=== PATIENT | male | born 1930 | race Caucasian/White ===

== ENCOUNTER 2016-07-30 14:13 | Inpatient (IN) | payer OTHER ==
[~2016-07-30] VITALS: Ht 172.7 cm; Wt 77.1 kg
--- NOTE | ~2016-07-30 | EKG ---
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 : 1930 Requested By: Camille Perkins Order Number: [id number] MD: Damon Higuera Measurements Intervals [place] Rate: 106 P: -48 DC: 162 QRS: -50 QRSD: 120 T: 96 QT: 365 QTc: 485 Interpretive Statements Sinus or ectopic atrial tachycardia Incomplete left bundle branch block LVH with secondary repolarization abnormality No previous ECG available for comparison Electronically Signed On 08-01-2016 10:52:33 CONE TENDER by Damon Higuera [email or web address] <ELECTRONICALLY SIGNED> By: Damon Higuera MD 08/01/16 1052 142 142 Damon Higuera MD /ABBI
--- NOTE | ~2016-07-30 | 2DMMODE ---
[facility] [place] [employer] [place] [address] 2 D/M-MODE ECHOCARDIOGRAM Name: ALFA BLEDSOE Room #: 444-P [facility] IN .R.#: [id number] Admission: 07/30/16 Attend Phys: Traci Yee, Discharge: Date of : 29 Date of Service: 07/30/16 1650 Report #: [id number] THIS REPORT FOR: //name// Transthoracic Echocardiography Ordering physician: Camille Perkins Referring physician: Janak Mendoza Kathleen L. Sign Designer: OLAF Ramirez Indications/History: Respiratory failure. BP: 159 / HR: 98bpm Height: 68in Weight: 169.6lb 90 Study data: M-mode, complete 2D, complete spectral Doppler, and color Doppler. Location: Bedside. STAT. Image quality was good. 2D measurements Normal Normal LVID ED 46mm 36-57 IVS ED 9.4mm 6-11 LVID ES 36.9mm 23-40 LVPW ED 9.6mm 6-11 LA volume 32ml/m2 16-28 AoRoot diam 32.4mm 21-37 index ED LVOT diameter 21mm 18-23 Findings: Left ventricle: The cavity size was normal. Wall thickness was normal. Systolic function was mildly to moderately reduced. The estimated ejection fraction was in the range of 40% to 45%. Regional wall motion abnormalities: Hypokinesis of the basal-mid anteroseptal, basal-mid inferoseptal, entire inferior, and apical septal myocardium. Right ventricle: The cavity size was normal. Systolic function was normal. Right atrium: The atrium was mildly dilated. Left atrium: The atrium was at the upper limits of normal in size. Volume index: 32ml/m2 (S). Aortic valve: Mildly calcified leaflets. Doppler: There was no stenosis. Mild regurgitation. Peak velocity: [facility] [address] [place] [address] 2 D/M-MODE ECHOCARDIOGRAM Name: ALFA BLEDSOE Room #: 444-P ADM IN M.R.#: [id number] Admission: 07/30/16 Attend Phys: Traci Yee, Discharge: Date of : 29 Date of Service: 07/30/16 1650 Report #: [id number] 86.3cm/s (S). Mitral valve: Mildly calcified annulus. Doppler: There was no evidence for stenosis. Mild regurgitation. Tricuspid valve: Structurally normal valve. Doppler: There was no evidence for stenosis. Mild-moderate regurgitation. Regurgitant peak velocity: 327.1cm/s. Peak RV-RA gradient: 43mm Hg (S). Pulmonic valve: Structurally normal valve. Doppler: There was no evidence for stenosis. Mild regurgitation. Pericardium: There was no pericardial effusion. Aorta: Aortic root: The aortic root was normal in size. Pulmonary artery: Systolic pressure was estimated to be 58mm Hg. Diastolic function: The study is not technically sufficient to allow evaluation of LV diastolic function. Systemic veins: Inferior vena cava: The vessel was dilated; respirophasic changes in dimension were absent. Conclusions 1. Left ventricle: Systolic function was mildly to moderately reduced. The estimated ejection fraction was in the range of 40% to 45%. 2. Regional wall motion abnormality: Hypokinesis of the basal-mid anteroseptal, basal-mid inferoseptal, entire inferior, and apical septal myocardium. 3. Right atrium: The atrium was mildly dilated. 4. Aortic valve: Mildly calcified leaflets. Mild regurgitation. 5. Mitral valve: Mildly calcified annulus. Mild regurgitation. 6. Pulmonic valve: Mild regurgitation. 7. Tricuspid valve: Mild-moderate regurgitation. 8. Pericardium, extracardiac: There was no pericardial effusion. 9. Pulmonary arteries: Systolic pressure was estimated to be 58mm Hg. <ELECTRONICALLY SIGNED> By: Carlton Gaviria MD, [facility] 07/30/162102 1650 02 Carlton Gaviria MD, FACC /naomi
--- NOTE | ~2016-07-30 | HC ---
[facility] [place] [place] [address] CONSULTATION Name: ALFA BLEDSOE Room #: 444-P ADM IN M.R.#: [id number] Admission: 07/30/16 Attend Phys: Traci Yee MD Discharge: Date of : 29 Report #: [id number] THIS REPORT FOR: //name// CC: Traci Mendoza PRIMARY CARE PHYSICIAN: Unknown. REFERRING PHYSICIAN: Traci Yee M.D. REASON FOR REFERRAL: Dyspnea and hypoxia. HISTORY OF PRESENT ILLNESS: The patient is an 85-year-old white male who presents to the Emergency Room with progressive dyspnea. A pulmonary consultation was requested. The patient has known hypogammaglobulinemia, he is on IV fusions. He has a history of multiple pneumonias in the past. The patient was also diagnosed with non-Hodgkin's lymphoma in 2006. The patient was in his usual state of health until 2 days prior to presentation he started developing increasing dyspnea, fever and chills. In the Emergency Room, the patient was found to be hypoxic with a saturation of 83%. Chest x-ray on admission revealed a small pleural effusion, otherwise mild interstitial markings without consolidation or air bronchogram. Since admission, the patient states that he is better. He denies any chest pain or productive cough. PAST MEDICAL HISTORY: Remarkable for non-Hodgkin's lymphoma in 2006, hypogammaglobulinemia, on IV immunoglobulin infusions, history of recurrent pneumonias in the past, osteoarthritis, benign prostatic hypertrophy and history of orthostatic hypotension. PAST SURGICAL HISTORY: As mentioned above. ALLERGIES: None to medications. MEDICATIONS ON ADMISSION: Revealed Remeron, diazepam, Celexa, Florinef and Flomax. FAMILY HISTORY: Notable for diabetes mellitus, rheumatic heart disease and Parkinson's disease. Mother had breast cancer. She has . [facility] [address] [place] [address] CONSULTATION Name: ALFA BLEDSOE Gilbert Room #: 444-P [facility] IN [facility]#: [id number] Admission: 07/30/16 Attend Phys: Traci Yee MD Discharge: Date of : 29 Report #: [id number] SOCIAL HISTORY: The patient has smoked for a total of 35 years, quit in 1978. He drinks socially. 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 He is and lives with his . REVIEW OF SYSTEMS: As mentioned above; otherwise, 10-point system review negative. PHYSICAL EXAMINATION: GENERAL: He is awake and alert, in no apparent distress. VITAL SIGNS: Temperature is 96.4 degrees Fahrenheit, pulse is 73, respiratory rate is 20, blood pressure 108/51 mmHg and saturation is 95%. HEENT: Normocephalic and atraumatic. NECK: Supple without any lymphadenopathy or thyromegaly. CHEST: Breath sounds are fair due to fair effort. Few scattered crackles in the bases. No wheezes. CARDIOVASCULAR: Normal S1 and S2. No murmurs or gallop. There is no JVD. There is no carotid bruit. Pulses are 2+/4+ bilaterally. ABDOMEN: Soft and nontender, no organomegaly or masses felt. EXTREMITIES: No cyanosis and no clubbing but marked for trace edema. LABORATORY DATA: Chest x-ray again shows small pleural effusion posteriorly, pulmonary vascular congestion has improved. Echocardiogram showed an ejection fraction of 40%-45%, hypokinesis, ____ wall motion abnormalities noted, mild aortic regurgitation, mild mitral regurgitation and pulmonary artery pressure measured 58. Electrolytes unremarkable except for creatinine of 1.2. Liver function tests grossly unremarkable. WBC 16,700, hemoglobin is 14.7. Arterial blood gas revealed pH 7.48, pCO2 of 29, pO2 of 91 and FiO2 of 30%. IMPRESSION: 1. Acute hypoxic respiratory failure in this 85-year-old white male. He had febrile illness on presentation. Chest x-ray shows pulmonary vascular congestion. Possible infiltrates. Leukocytosis is present without significant bandemia. Cause may be related to infectious process given febrile illness. Atypical pneumonia is also considered including viral given the absence of consolidation. Pneumonia is also possible. In addition, given his history of cardiomyopathy, acute on chronic systolic heart failure should also be considered. 2. Febrile illness, leukocytosis, abnormal chest x-ray, suspect possible infectious process including pneumonia and atypical infections including viral syndrome. 3. Pcfkm-as-foylkby systolic heart failure. 4. Nonischemic cardiomyopathy with ejection fraction of approximately 40%. 5. History of non-Hodgkin's lymphoma, status post treatment. 6. Hypogammaglobulinemia, on IV infusion. This makes pneumonia more likely. 7. History of orthostatic hypotension. [facility] [address] [place] [address] CONSULTATION Name: ALFA BLEDSOE Gilbert Room #: 444-P ADM IN M.R.#: [id number] Admission: 07/30/16 Attend Phys: Traci Yee MD Discharge: Date of : 29 Report #: [id number] RECOMMENDATIONS: Agree with broad-spectrum antibiotics. Also agree with diuresis along with DVT and GI prophylaxis. Wean O2 for saturation 90%. Thank you for this consultation. <ELECTRONICALLY SIGNED> By: Marcelo Valderrama MD 08/01/16 1628 1747 0447 Marcelo Valderrama MD /nt
--- NOTE | ~2016-07-30 | EKG ---
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
--- NOTE | ~2016-07-30 | EKG ---
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: agnes : 1930 Requested By: Traci Yee Order Number: [id number] MD: Damon Higuera Measurements Intervals [place] Rate: 70 P: 0 VA: 296 QRS: -40 QRSD: 117 T: -50 QT: 480 QTc: 519 Interpretive Statements Possible atrial fibrillation Left anterior fascicular block Borderline T abnormalities, inferior leads Baseline wander in lead(s) V5,V6 No previous ECG available for comparison Electronically Signed On 08-01-2016 11:02:13 GROCERY CLERK SELLING by Damon Higuera [email or web address] <ELECTRONICALLY SIGNED> By: Damon Higuera MD 08/01/16 1102 0231 0231 Damon Higuera MD /EPI
--- NOTE | ~2016-07-30 | HC ---
[facility] [place] [place] [address] CONSULTATION Name: ALFA BLEDSOE Room #: 444-P [facility] IN M.R.#: [id number] Admission: 07/30/16 Attend Phys: Traci Yee MD Discharge: 08/03/16 Date of : 29 Report #: [id number] THIS REPORT FOR: //name// CC: Traci Mendoza HISTORY OF PRESENT ILLNESS: The patient is an 85-year-old male known to myself, although I have not seen him for 3 or 4 years. He is admitted with progressive shortness of breath and dyspnea, respiratory distress, brought by EMS with O2 sats in the 80% range. Chest x-ray in the Emergency Room revealed some cephalization, heart failure, possible infiltrates. He is currently on BiPAP. He does have a history of recurrent pneumonia. He does not have much in the way of cardiac history. No significant heart failure history, has had some mild issues with this, but really has not been following with Cardiology. He takes no diuretic or really cardiovascular medications. He denies fever, chills. LABORATORY DATA: Elevated white count 16,000, BUN was 20, creatinine 1.2, potassium 3.7. Troponin is negative. BNP was 5402, so I am not terribly impressive in this setting. H and H were 14 and 44. Cultures are pending. MEDICATIONS: He has been compliant with medications which have been Remeron, diazepam b.i.d. for anxiety, Celexa at night 20 mg, Florinef, has a history of orthostatic hypotension and Flomax 0.4. PAST MEDICAL HISTORY: Positive for orthostatic hypotension, some anxiety disorder, non-Hodgkin's lymphoma, also some question of CLL in the old records, hypogammaglobinemia with IVIG infusions, BPH, skin cancer, DJD, cataract and recurrent pneumonias. SOCIAL HISTORY: He is . He lives relatively independently. He does have I believe 3 sons. He is a former tobacco user, but none currently and no alcohol. FAMILY HISTORY: His father at 47 possibly from premature coronary artery disease. REVIEW OF SYSTEMS: Essentially negative except for as stated above and the nocturia, hesitancy. PHYSICAL EXAMINATION: VITAL SIGNS: Blood pressure 150/90, pulse is 80s. He has a BiPAP. GENERAL: He is not in significant distress. HEENT: Eyes reveal xanthelasmas. Pharynx is clear. NECK: Shows preserved upstrokes, difficult to evaluate for JVD. LUNGS: Prolonged expiratory phase, diminished in the bases, few crackles are noted. CARDIOVASCULAR: S1, S2. Distant heart tones without significant murmur or [facility] [address] [place] [address] CONSULTATION Name: ALFA BLEDSOE Gilbert Room #: 444-P DIS IN M.R.#: [id number] Admission: 07/30/16 Attend Phys: Traci Yee MD Discharge: 08/03/16 Date of : 29 Report #: [id number] gallop. ABDOMEN: Soft, slightly protuberant, nontender. EXTREMITIES: Reveal trace of edema. His pulse is diminished. NEUROLOGIC: Nonfocal. SKIN: Warm and dry and without xanthoma or ulcer. There is lower extremity venous stasis, mild skin changes. MUSCULOSKELETAL: Generalized arthritic changes. I did not ambulate him. ASSESSMENT: 1. Acute respiratory distress with hypoxemia. 2. Probable component of acute systolic failure, although I believe this may well be more of an infectious pneumonia process. 3. History of orthostatic hypotension. 4. Hypertension here currently, will follow. 5. Anxiety disorder. 6. Degenerative joint disease. 7. History of benign prostatic hypertrophy. RECOMMENDATIONS AND PLAN: IV antibiotics and steroids have been given. I have given a dose of IV Lasix. We will reevaluate the chest x-ray in the a.m. The EKG is not impressive. Looks like left axis, LVH is noted. An echo Doppler preliminarily had mild depression, LV function and had been previously 55-60, looks to be more in the 45% range. I will go and reevaluate for formal report. We will reevaluate in the a.m. The need for continued IV Lasix, I suspect there is definitely a component of heart failure here of either diastolic or systolic mixed picture on top of underlying pulmonary process. I agree with prophylactic Lovenox and Protonix and we will follow with you. Thank you for asking us to assist in the care of this patient. <ELECTRONICALLY SIGNED> By: Carlton Gaviria MD, FACC 08/13/16 0936 2043 0501 Carlton Gaviria MD, FACC /nt
[~2016-07-30 14:13] MED LIST: ANTIVERT12.5 MG PO; CARDURA8 MG PO; CELEXA 20 MG TA20 M1 PO; CELEXA20 MG PO; CLARITIN10 MG PO; FLOMAX PO; FLOMAX0.4 MG PO; FLORINEF ACETA0.1 MG PO; HM ACETAMINOPH1 EAC1 PO; KLOR-CON20 ME1 PO; LEVAQUIN 500 M500 M1 PO; LEXAPRO20 MG PO; LORATIDINE 10 M10 M1 PO; MIDODRINE HCL2.5 M1 PO; MULTIVITAMINS PO; PRIVIGEN IV; RAPAFLO PO; RAPAFLO4 MG PO; TAMSULOSIN HCL0.4 MG PO; TYLENOL P.M. E1 EAC3 OR; [UNRECOGNIZED DRUG - OTHER]
[2016-07-30 14:14] VITALS: BP 201/108; BP 98/75
[2016-07-30] MEDS ORDERED: DIAZEPAM 2MG TAB2 MG PO (14:27)
[2016-07-30] MEDS ORDERED: REMERON15 MG PO (14:27)
[2016-07-30 14:37] LABS: HEMATOCRIT 44.6 % (42.0-52.0); HEMOGLOBIN 14.7 gm/dL (14.0-18.0); MCH 29.4 pg (26.0-34.0); PLATELET COUNT 282 thou/uL (150-400); RBC 5.01 mil/uL (4.50-6.00); RDW 14.6 % (10.5-14.5); WBC 16.7 thou/uL (4.0-11.0)
[2016-07-30 14:39] LABS: MANUAL DIFF YES
[2016-07-30 14:47] LABS: CALCIUM 8.7 mg/dL (8.5-10.1); CREATININE 1.2 mg/dL (0.6-1.3); POTASSIUM 3.7 mmol/L (3.5-5.1)
[2016-07-30] MEDS ORDERED: NEURONTIN600 MG PO ×2 (14:47→15:40)
[2016-07-30] MEDS ORDERED: APAP500 PO (14:47)
[2016-07-30 14:59] LABS: ABSOLUTE NEUTROPHILS 9.9 thou/uL (1.4-8.2); ATYPICAL LYMPHS 11 %; PLATELET ESTIMATE NORMAL; TOTAL CELL COUNT 100
[2016-07-30 15:11] LABS: ABG SAMPLE TYPE ARTERIAL; BE(vivo) -4.8 mmol/L (-2 to +3); HCO3 17.7 mmol/L (22.0-26.0); LACTATE 1.97 mmol/L (0.5-2.0); O2(CT) 19.8 mL/dL (15.0-23.0); O2Hb 97.9 % (92.0-98.0); PCO2 26.6 mmHg (35.0-45.0); PO2 159.2 mmHg (80.0-100.0); sO2 99.1 % (92.0-98.0); tCO2 18.5 mmol/L (24.0-30.0)
[2016-07-30 15:12] LABS: STICK SITE R.RADIAL
[2016-07-30] MEDS ORDERED: CELEXA20 MG PO (15:41)
[2016-07-30] MEDS ORDERED: FLORINEF ACETA0.1 MG PO (15:42)
[2016-07-30 15:43] VITALS: BP 162/69
[2016-07-30 19:48] VITALS: BP 142/80
[2016-07-30 23:38] VITALS: BP 106/78
[2016-07-31 02:39] LABS: ABSOLUTE NEUTROPHILS 10.6 thou/uL (1.4-8.2); BASOPHILS 0.4 % (0.0-2.0); EOSINOPHILS 0.8 % (0.0-3.0); HEMOGLOBIN 13.1 gm/dL (14.0-18.0); MCH 29.5 pg (26.0-34.0); MCHC 33.6 % (28.0-37.0); MCV 87.7 fL (80.0-100.0); MONOCYTES 1.9 % (1.0-8.0); PLATELET COUNT 212 thou/uL (150-400); POLYS 67.9 % (36.0-66.0); RBC 4.45 mil/uL (4.50-6.00); WBC 15.6 thou/uL (4.0-11.0)
[2016-07-31 02:41] LABS: MANUAL DIFF NO
[2016-07-31 03:27] VITALS: BP 136/73
[2016-07-31 04:27] LABS: ALBUMIN 3.4 g/dL (3.4-5.0); CALCIUM 8.1 mg/dL (8.5-10.1); CREATININE 1.1 mg/dL (0.6-1.3); POTASSIUM 3.4 mmol/L (3.5-5.1); TOTAL BILIRUBIN 1.2 mg/dL (<0.1-1.0)
[2016-07-31 07:33] LABS: ABG SAMPLE TYPE ARTERIAL; BE(vivo) -0.2 mmol/L (-2 to +3); FIO2 30 %; HCO3 22.1 mmol/L (22.0-26.0); LACTATE 1.98 mmol/L (0.5-2.0); O2(CT) 18.7 mL/dL (15.0-23.0); O2Hb 96.2 % (92.0-98.0); PCO2 29.7 mmHg (35.0-45.0); PO2 91.3 mmHg (80.0-100.0); STICK SITE R.BRACHIAL; pH 7.489 (7.360-7.450); sO2 97.6 % (92.0-98.0)
[2016-07-31 07:34] LABS: Pressure Support 6 cm H20
[2016-07-31 08:00] VITALS: BP 131/76
[2016-07-31 12:00] VITALS: BP 114/71
[2016-07-31 16:00] VITALS: BP 108/51
[2016-07-31 20:38] VITALS: BP 102/54
[2016-08-01 04:08] VITALS: BP 124/64
[2016-08-01 05:47] LABS: ABSOLUTE NEUTROPHILS 12.1 thou/uL (1.4-8.2); BASOPHILS 0.7 % (0.0-2.0); HEMATOCRIT 36.1 % (42.0-52.0); HEMOGLOBIN 11.8 gm/dL (14.0-18.0); LYMPHOCYTES 18.5 % (24.0-44.0); MANUAL DIFF NO; MCHC 32.8 % (28.0-37.0); MCV 88.5 fL (80.0-100.0); MONOCYTES 3.3 % (1.0-8.0); PLATELET COUNT 217 thou/uL (150-400); POLYS 77.5 % (36.0-66.0); RBC 4.08 mil/uL (4.50-6.00); RDW 14.5 % (10.5-14.5); WBC 15.7 thou/uL (4.0-11.0)
[2016-08-01 05:58] LABS: CALCIUM 8.2 mg/dL (8.5-10.1); CREATININE 1.4 mg/dL (0.6-1.3); POTASSIUM 3.5 mmol/L (3.5-5.1)
[2016-08-01 08:37] VITALS: BP 131/70
[2016-08-01 12:26] VITALS: BP 125/84
[2016-08-01 15:13] VITALS: BP 125/84
[2016-08-01 16:23] VITALS: BP 137/70
[2016-08-01 19:11] VITALS: BP 147/83
[2016-08-02 03:39] VITALS: BP 140/87
[2016-08-02 04:23] LABS: ABSOLUTE NEUTROPHILS 10.5 thou/uL (1.4-8.2); BASOPHILS 0.2 % (0.0-2.0); HEMATOCRIT 38.2 % (42.0-52.0); HEMOGLOBIN 12.2 gm/dL (14.0-18.0); LYMPHOCYTES 25.2 % (24.0-44.0); MCH 28.9 pg (26.0-34.0); MCHC 32.1 % (28.0-37.0); MCV 90.2 fL (80.0-100.0); MONOCYTES 3.8 % (1.0-8.0); PLATELET COUNT 240 thou/uL (150-400); POLYS 70.8 % (36.0-66.0); RBC 4.23 mil/uL (4.50-6.00); RDW 14.6 % (10.5-14.5); WBC 14.8 thou/uL (4.0-11.0)
[2016-08-02 04:24] LABS: MANUAL DIFF NO
[2016-08-02 04:40] LABS: CALCIUM 8.1 mg/dL (8.5-10.1); CREATININE 1.1 mg/dL (0.6-1.3); POTASSIUM 3.9 mmol/L (3.5-5.1)
[2016-08-02 08:00] VITALS: BP 139/73
[2016-08-02 12:00] VITALS: BP 120/60
[2016-08-02 16:00] VITALS: BP 117/55
[2016-08-03 04:14] VITALS: BP 141/65
[2016-08-03 08:00] VITALS: BP 142/73
[2016-08-03 12:00] VITALS: BP 122/69
[2016-08-03] MEDS ORDERED: LASIX 40 MG TAB40 M1 PO (15:10)
[2016-08-03] MEDS ORDERED: K-DUR 20 MEQ T20 MEQ PO (15:10)
[2016-08-03] MEDS ORDERED: PANTOPRAZOLE SO40 M1 PO (15:10)
[2016-08-03] MEDS ORDERED: CEFUROXIME250 MG PO (15:10)
[2016-08-03] MEDS ORDERED: DUONEB 2.5-0.5 M3 ML INH (15:10)
[2016-08-03] MEDS ORDERED: LISINOPRIL10 MG PO (15:10)
[2016-08-03] MEDS ORDERED: PREDNISONE 10 M10 MG PO (15:10)
[2016-08-03] MEDS ORDERED: MIRALAX17 GM PO (15:10)
[2016-08-03] MEDS ORDERED: CARVEDILOL6.25 MG PO (15:10)
[2016-08-03] MEDS ORDERED: COLACE 100 MG100 MG PO (15:10)
[2016-08-03 15:19] VITALS: BP 125/84
[2016-08-31] MEDS ORDERED: COREG3.125 MG PO (18:01)
== END 2016-08-03 16:00 | disposition home or self-care (01) | DRG 871 ==
LOC: ER 14:13 → EROBS 15:09 → 4S 15:09
PROVIDERS: Emergency Medicine; Hospitalist; Internal Medicine Endocrinology, Diabetes & Metabolism; Nurse Practitioner
PROC: 5A09357 Assistance with Respiratory Ventilation, Less than 24 Consecutive Hours, Continuous Positive Airway Pressure (ICD-10-PCS; principal; 2016-07-30)
DX: A41.9 Sepsis, unspecified organism (principal); J18.9 Pneumonia, unspecified organism; J96.01 Acute respiratory failure with hypoxia; I50.23 Acute on chronic systolic (congestive) heart failure; C85.90 Non-Hodgkin lymphoma, unspecified, unspecified site; D80.1 Nonfamilial hypogammaglobulinemia; I42.8 Other cardiomyopathies; I11.0 Hypertensive heart disease with heart failure; Z90.49 Acquired absence of other specified parts of digestive tract; Z85.828 Personal history of other malignant neoplasm of skin; N40.0 Benign prostatic hyperplasia without lower urinary tract symptoms; M19.90 Unspecified osteoarthritis, unspecified site; Z98.42 Cataract extraction status, left eye; Z98.41 Cataract extraction status, right eye; Z79.899 Other long term (current) drug therapy; F41.9 Anxiety disorder, unspecified; Z87.891 Personal history of nicotine dependence; Z83.3 Family history of diabetes mellitus; Z82.49 Family history of ischemic heart disease and other diseases of the circulatory system; Z80.3 Family history of malignant neoplasm of breast; I25.10 Atherosclerotic heart disease of native coronary artery without angina pectoris; J98.01 Acute bronchospasm
CPT/HCPCS: 10100

== ENCOUNTER → 2016-08-18 | Outpatient (CLI) | payer OTHER ==
[~2016-08-18] MED LIST changes: +APAP500 PO; +CARVEDILOL6.25 MG PO; +CEFUROXIME250 MG PO; +COLACE 100 MG100 MG PO; +COREG3.125 MG PO; +DIAZEPAM 2MG TAB2 MG PO; +DUONEB 2.5-0.5 M3 ML INH; +K-DUR 20 MEQ T20 MEQ PO; +LASIX 40 MG TAB40 M1 PO; +LISINOPRIL10 MG PO; +MIRALAX17 GM PO; +NEURONTIN600 MG PO; +PANTOPRAZOLE SO40 M1 PO; +PREDNISONE 10 M10 MG PO; +REMERON15 MG PO
[2016-08-18 12:45] VITALS: BP 88/50
== END ==
LOC: OPONC 01:39
DX: D80.1 Nonfamilial hypogammaglobulinemia (principal)
CPT/HCPCS: 95000; 95001

== ENCOUNTER → 2016-11-03 | Outpatient (CLI) | payer OTHER ==
[2016-11-03 09:55] VITALS: BP 138/86
== END ==
LOC: OPONC 10-31 07:11
DX: D80.1 Nonfamilial hypogammaglobulinemia (principal)
CPT/HCPCS: 95000; 95001

== ENCOUNTER → 2016-12-09 | Outpatient (CLI) | payer OTHER ==
[2016-12-09 09:50] VITALS: BP 149/75
== END ==
LOC: OPONC 06:26
DX: D80.1 Nonfamilial hypogammaglobulinemia (principal)
CPT/HCPCS: 95000; 95001

== ENCOUNTER → 2017-01-12 | Outpatient (CLI) | payer OTHER ==
[2017-01-12 15:00] VITALS: BP 134/54
== END ==
LOC: OPONC 06:22
DX: D80.1 Nonfamilial hypogammaglobulinemia (principal)
CPT/HCPCS: 95000; 95001

== ENCOUNTER → 2017-02-25 | Outpatient (CLI) | payer OTHER ==
[~2017-02-25] MED LIST changes: +CELEXA40 MG PO; +LASIX 20 MG TAB20 MG PO; +MIRTAZAPINE7.5 MG PO; +POTASSIUM20 PO
--- NOTE | ~2017-02-25 | EKG ---
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
[2017-02-25 11:00] VITALS: BP 104/41
== END ==
LOC: OPONC 00:39
DX: D80.1 Nonfamilial hypogammaglobulinemia (principal)
CPT/HCPCS: 95000; 95001

== ENCOUNTER → 2017-04-02 | Outpatient (CLI) | payer OTHER ==
[2017-04-02 10:10] VITALS: BP 123/64
== END ==
LOC: OPONC 01:24
DX: C91.12 Chronic lymphocytic leukemia of B-cell type in relapse (principal); D80.1 Nonfamilial hypogammaglobulinemia
CPT/HCPCS: 95000; 95001

== ENCOUNTER → 2017-04-28 | Outpatient (CLI) | payer OTHER ==
[2017-04-28 09:40] VITALS: BP 116/33
== END ==
LOC: OPONC 00:42
DX: D80.1 Nonfamilial hypogammaglobulinemia (principal)
CPT/HCPCS: 95000; 95001

== ENCOUNTER → 2017-05-29 | Outpatient (CLI) | payer OTHER ==
[2017-05-29 09:55] VITALS: BP 140/56
== END ==
LOC: OPONC 07:31
DX: D80.1 Nonfamilial hypogammaglobulinemia (principal)
CPT/HCPCS: 95000; 95001

== ENCOUNTER → 2017-07-03 | Outpatient (CLI) | payer OTHER ==
[2017-07-03 11:10] VITALS: BP 128/48
== END ==
LOC: OPONC 08:41
DX: D80.1 Nonfamilial hypogammaglobulinemia (principal)
CPT/HCPCS: 95000; 95001

== ENCOUNTER → 2017-07-31 | Outpatient (CLI) | payer OTHER ==
[~2017-07-31] MED LIST changes: +CARVEDILOL3.125 MG PO; +CEFDINIR300 MG PO; +HYDROCODON-ACE1 EAC7 PO; +IMBRUVICA140 MG PO; +LEVALBUTER0.63 MG/3 INH; +SYNTHROID175 MCG PO
[2017-07-31 10:54] VITALS: BP 141/53
== END ==
LOC: OPONC 00:19
DX: C91.12 Chronic lymphocytic leukemia of B-cell type in relapse (principal); D80.1 Nonfamilial hypogammaglobulinemia
CPT/HCPCS: 95000; 95001

== ENCOUNTER → 2017-08-27 | Outpatient (CLI) | payer OTHER ==
[2017-08-27 10:50] VITALS: BP 112/51
== END ==
LOC: OPONC 01:30
DX: C91.12 Chronic lymphocytic leukemia of B-cell type in relapse (principal); D50.9 Iron deficiency anemia, unspecified; D80.1 Nonfamilial hypogammaglobulinemia
CPT/HCPCS: 95000; 95001

== ENCOUNTER 2017-09-07 15:06 | Inpatient (IN) | payer OTHER ==
[~2017-09-07] VITALS: Ht 180.3 cm; Wt 77.6 kg
--- NOTE | ~2017-09-07 | CNG ---
[facility] [place] [address] CYTO-NONGYN REPORT PROCEDURE Name: ALFA BLEDSOE Room #: 432-P ADM IN M.R.#: [id number] Admission: 09/07/17 Date of : 28 Discharge: Report #: [id number] Path Case #: [id number] CYTOPATHOLOGY REPORT COLLECTION DATE: 09/11/2017 RECEIVED DATE: 09/15/2017 SUBMITTING PHYS: Oscar Gupta M.D. OTHER PHYS: Dr. Jaquan Mendoza CLINICAL HISTORY: Pneumonia, weakness SPECIMEN(S) RECEIVED: A.Bronchoalveolar lavage B.Brushing, RML C.Protected Brushtip * * * * * * * * * * * * FINAL DIAGNOSIS: A. Lung, Bronchoalveolar lavage: - No malignant cells identified. - Bronchial epithelial cells, alveolar macrophages, and squamous cells present. - GMS special stain negative for Pneumocystis and negative for fungal elements. B. Lung, RML, Brushing: - MARKEDLY ATYPICAL BRONCHIAL EPITHELIAL CELLS, INTERPRETATION OBSCURED BY EXTENSIVE AIR DRYING ARTIFACT ON THE SMEARS. - Marked acute inflammation in the background. C. Lung, Protected Brushtip: - No malignant cells identified. - Bronchial epithelial cells, alveolar macrophages, and squamous cells present. - Marked acute inflammation in the background. COMMENT: [place]: Dr. Anita Quispe (Slide B0-3) PATHOLOGIST: Amy Posada M.D. REPORT ELECTRONICALLY SIGNED BY: Amy Posada M.D. DATE/TIME: 09/16/2017 14:39 * * * * * * * * * * * * GROSS PATHOLOGY: A. Bronchoalveolar lavage: The specimen is submitted unfixed, labeled "Alfa Bledsoe". Received by the Cytology Department is two mL of cloudy colorless fluid. One ThinPrep slide for pap stain and one ThinPrep slide for silver stain were prepared. B. Brushing, RML: The specimen is labeled "Alfa Bledsoe" and consists of two fixed slides. One brush tip in fixative is also [facility] [place] [address] CYTO-NONGYN REPORT PROCEDURE Name: ALFA BLEDSOE Room #: 432-P ADM IN M.R.#: [id number] Admission: 09/07/17 Date of : 28 Discharge: Report #: [id number] Path Case #: [id number] received and one ThinPrep slide was prepared from this material. C. Protected Brushtip: The specimen is labeled "Alfa Bledsoe" and consists of a brush tip in fixative. One ThinPrep slide was prepared. (mm 09.15.2017) INSULATOR APPRENTICE(S): CHRISTINA Evans[facility] INITIAL CPT CODE(S): A; 43310, 13772 B; 00400 C; 82764 Professional services performed by [facility] at [facility] [address] [place] [address] Technical services performed by [facility] at [address] [place] [address]., [address], [place] [address]. [facility] [address], [address] [place] [address] PHONE: [phone] DIRECTOR: Braulio Lucia M.D. * * * END OF REPORT * * *
--- NOTE | ~2017-09-07 | 2DMMODE ---
[facility] [address] [place] [address] 2 D/M-MODE ECHOCARDIOGRAM Name: ALFA BLEDSOE Room #: 432-P [facility] IN M.R.#: [id number] Admission: 09/07/17 Attend Phys: Oscar Gupta MD Discharge: Date of : 28 Date of Service: 09/08/172102 Report #: [id number] THIS REPORT FOR: //name// APPROVED REPORT Study performed: 09/08/2017 14:34:44 EXAM: Comprehensive 2D, Doppler, and color-flow Echocardiogram Patient Location: Bedside Room #: 432 Status: routine BSA: 1.92 HR: 89 bpm BP: 159/76 mmHg Other Information Study Quality: Good Indications Congestive Heart Failure Dyspnea Cardiomyopathy Hypertension/HDD 2D Dimensions RVDd: 41.08 mm LVEF(%): 40.43 (>50%) IVSd: 8.76 (7-11mm) LVOT Diam: 22.95 (18-24mm) LVDd: 47.78 mm PWd: 9.16 (7-11mm) Ascending Ao: 33.32 (22-36mm) LVDs: 38.36 (25-40mm) Aortic Root: 30.88 mm IVC: 22.00 mm Villalobos's LVEF: 40.43 % Volumes Left Atrial Volume (Systole) Single Plane 4CH: 82.06 mL Single Plane 2CH: 71.51 mL LA ESV Index: 44.00 mL/m2 Aortic Valve AoV Peak Cristian.: 1.01 m/s AO Peak Gr.: 4.12 mmHg LVOT Max P.03 mmHg LVOT Max V: 0.87 m/s WILIAM Vmax: 3.55 cm2 AI Vmax: 3.18 m/s AI Lyon: 2.44 m/s2 [facility] [place] [address] 2 D/M-MODE ECHOCARDIOGRAM Name: [facility] Room #: 432-P ADM IN M.R.#: [id number] Admission: 09/07/17 Attend Phys: Oscar Gupta MD Discharge: Date of : 29 Date of Service: 09/08/17 210 Report #: [id number] AI PHT: 377.20 ms Pulmonary Valve PV Peak Cristian.: 1.03 m/s PV Peak Gr.: 4.26 mmHg SC End Vmax: 1.47 m/s Tricuspid Valve TR Peak Cristian.: 2.99 m/s TR Peak Gr.: 35.69 mmHg PA Pressure: 51.00 mmHg Left Ventricle The left ventricle is normal size. There is global hypokinesis of the left ventricle. There is severe hypokinesis in the apical wall. There is severe hypokinesis in the apical inferior wall. There is moderate hypokinesis in the apical septal wall. There is normal left ventricular wall thickness. Left ventricular ejection fraction is mild to moderately decreased. LVEF is 35-40%. This study is not technically sufficient to allow evaluation of the LV diastolic function. Right Ventricle Right ventricle is at the upper limits of normal. The right ventricular systolic function is normal. Atria Left atrium is dilated. Right atrium is dilated. Aortic Valve The aortic valve is normal in structure. Aortic valve is calcified. Trace to mild aortic regurgitation. There is no aortic valvular stenosis. Mitral Valve The mitral valve is normal in structure. Mild to moderate mitral regurgitation. No evidence of mitral valve stenosis. Tricuspid Valve The tricuspid valve is normal in structure. There is moderate tricuspid regurgitation. Estimated PAP 51 mmHg. There is moderate pulmonary hypertension. Pulmonic Valve The pulmonary valve is normal in structure. Mild pulmonic regurgitation. [facility] [address] [place] [address] 2 D/M-MODE ECHOCARDIOGRAM Name: ALFA BLEDSOE Room #: 432-P [facility] IN M.R.#: [id number] Admission: 09/07/17 Attend Phys: Oscar Gupta MD Discharge: Date of : 28 Date of Service: 09/08/17 210 Report #: [id number] Great Vessels The aortic root is normal in size. The inferior vena cava is dilated with no inspiratory collapse. Pericardium There is no pericardial effusion. <Conclusion> The left ventricle is normal size. There is normal left ventricular wall thickness. Left ventricular ejection fraction is mild to moderately decreased. LVEF is 35-40%. Right ventricle is at the upper limits of normal. Left atrium is dilated. Right atrium is dilated. The aortic valve is normal in structure. Aortic valve is calcified. There is no aortic valvular stenosis. Mild to moderate mitral regurgitation. There is moderate tricuspid regurgitation. Estimated PAP 51 mmHg. There is moderate pulmonary hypertension. The aortic root is normal in size. There is no pericardial effusion. <ELECTRONICALLY SIGNED> By: Carlton Gaviria MD, FACC 09/08/172102 02 02 Carlton Gaviria MD, FACC /INF
--- NOTE | ~2017-09-07 | D ---
[facility] [place] [address] DISCHARGE SUMMARY Name: ALFA BLEDSOE Room #: 432-P [facility] IN M.R.#: [id number] Admission: 09/07/17 Attend Phys: Oscar Gupta MD Discharge: 09/18/17 Date of : 28 Report #: [id number] THIS REPORT FOR: //name// CC: Oscar Mendoza DATE OF SERVICE: 09/18/2017 HISTORY OF PRESENT ILLNESS: The patient is an 87-year-old man who came to the hospital with persistent cough, shortness of breath and fever. Please refer to admission H and P for details. The patient was hospitalized for pneumonia. Infectious disease specialist was consulted. The patient has history of CLL, in remission; as well as hypogammaglobulinemia. Due to immunosuppressed status, the patient was treated with broad-spectrum antibiotics. The patient was seen by infectious disease specialist. Clinical presentation was consistent with influenza. Due to hypoxia, cattle producers was also consulted. The patient had bronchoscopy. BAL fluid analysis was consistent with influenza. The patient was started on Tamiflu. The patient received a total of 10 days treatment with Tamiflu. Broad-spectrum antibiotics, vancomycin, Zosyn and Levaquin were continued. As the patient's condition improved, oxygen was tapered off, and eventually was discontinued. The patient became stronger. His p.o. intake remained diminished throughout the hospitalization. The patient was seen and evaluated by physical therapist. Placement in a assisted facility was recommended. Currently, the patient's condition is acceptable for him to go to the assisted facility. DISCHARGE DIAGNOSES: 1. Influenza A, completed 10 days treatment with Tamiflu. 2. Severe pneumonia, involving bilateral lungs. Resolving. Clinically much better. The patient will be discharged home on cefdinir, 5 more days. 3. Hypogammaglobulinemia. He received IVIG infusion during this hospital stay. 4. Chronic lymphocytic leukemia, in remission. Seen by oncologist. The patient will be resumed on ibrutinib at discharge. 5. Congestive heart failure with systolic dysfunction, ejection fraction 40%. Compensated throughout the hospital stay. 6. Hypothyroidism. Replaced with levothyroxine. 7. Debility. Continuation of the physical therapy at assisted facility. DISCHARGE MEDICATIONS: Same as admission medications, please refer to medication reconciliation list. In addition, the patient has continued to [address] [address] DISCHARGE SUMMARY Name: ALFA BLEDSOE Room #: 432-P [facility] IN M.R.#: [id number] Admission: 09/07/17 Attend Phys: Oscar Gupta MD Discharge: 09/18/17 Date of : 29 Report #: [id number] cefdinir for 5 more days, as well as on the breathing treatments as needed. FOLLOWUP PLAN: 1. Follow up with the primary care physician in 1 week. 2. Follow up with the oncologist and cattle producers as advised. I spent more than 30 minutes to coordinate the patient's discharge from the hospital. <ELECTRONICALLY SIGNED> By: Saqib Vee MD 09/21/17 [id number] Saqib Vee MD /nt
--- NOTE | ~2017-09-07 | HC ---
[facility] [place] [address] CONSULTATION Name: ALFA BLEDSOE Room #: 432-P ADM IN M.R.#: [id number] Admission: 09/07/17 Attend Phys: Oscar Gupta MD Discharge: Date of : 29 Report #: [id number] THIS REPORT FOR: //name// CC: Oscar Mendoza HISTORY OF PRESENT ILLNESS: This patient is well known to me for longstanding therapy of well differentiated lymphocytic lymphoma/CLL dating to 2007. He currently has been receiving ibrutinib and was recently seen by Dr. Garcia and placed on empiric antibiotics for shortness of breath and cough. When this persisted and was associated with worsening shortness of breath and fever, he was brought into the Emergency Room. He is currently in an independent living facility, but has a supportive son who helps care for him as his has dementia. In addition to CLL, he is also hypogammaglobulinemic and receive monthly infusions of IV IgG. These are administered at [facility] and was recently given 2 weeks ago. Unfortunately, they have recently switched their product from Gammagard to a different antibiotic to which he has had infusion reactions. He has not noted hemoptysis or produced any sputum. His temperature was reported as high as 104 and he was also given Tamiflu. He had received seasonal flu vaccination. His cancer history dates to 2006 when he was found to have retroperitoneal adenopathy along with lymphocytosis and was initially followed expectantly. By the spring, he had developed worsening complaints of fatigue and weakness and scan showed worsening mesenteric and retroperitoneal lymphadenopathy. He was diagnosed with stage IV and received 9 cycles of Rituxan, fludarabine and novantrone with dexamethasone. This therapy was completed from December of 2007 through July of 2008. He was subsequently followed clinically until this past year, when he unfortunately relapsed. He was again followed initially with worsening lymphocytosis, but then developed night sweats and worsening fatigue in January. He at that time was placed on ibrutinib. This has led to prompt improvement of his night sweats and resolution of the earlier lymphocytosis. PAST MEDICAL HISTORY: Significant for previous skin cancer. He has known mild cardiomyopathy. He has benign prostatic hypertrophy along with arthritis. HOME MEDICATIONS: As listed include meclizine, Celexa and tamsulosin. ALLERGIES: None known. SOCIAL HISTORY: He is a reformed smoker who stopped in 1977 after [address] [address] CONSULTATION Name: ALFA BLEDSOE Room #: 432-P [facility] IN .R.#: [id number] Admission: 09/07/17 Attend Phys: Oscar Gupta MD Discharge: Date of : 29 Report #: [id number] of 1 pack per day. 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 FAMILY HISTORY: Positive for breast cancer in his mother. His grandfather and grandmother were diabetic. His mother from metastatic breast cancer. REVIEW OF SYSTEMS: As in the history of present illness. He has also ongoing dyspnea after hospitalization. PHYSICAL EXAMINATION: GENERAL: Shows him to be alert and normotensive. He currently is afebrile. HEENT: Shows hoarse voice raised by nasal cannula. NECK: Supple. RESPIRATORY: Shows coarse breath sounds. CARDIOVASCULAR: S1, S2. ABDOMEN: Failed to reveal any palpable adenopathy or mass. EXTREMITIES: No clubbing, cyanosis or edema. NEUROLOGIC: No focal localizing signs. PSYCHIATRIC: Not agitated, diffuse. SKIN: Showed normal turgor. LYMPHATICS: Did not reveal any palpable supraclavicular adenopathy. HOSPITAL COURSE: His chest x-ray shows bilateral pulmonary infiltrates. Echo shows EF of 35-40%, which has been chronic. ASSESSMENT: 1. Chronic lymphocytic leukemia/small lymphocytic lymphoma on current ibrutinib. With the current infection, this has been held. 2. Hypogammaglobulinemia. PLAN: Repeat IgG level is low in spite of his recent infusion and would like to repeat this if possible during his current hospitalization, but have requested Gammagard due to his earlier infusion reactions. His CLL appears to be in a good partial remission at present with resolution of his earlier lymphocytosis and normalization of his white count. He does have ongoing mild anemia and recently received an iron infusion with negative previous occult blood testing. His recent CT scans from July 30 showed improvement in his earlier adenopathy post the recent ibrutinib therapy. Thanks again for asking me to see him in consultation and allowing me to participate in his care. <ELECTRONICALLY SIGNED> By: Cari Davies MD 09/14/17 1257 1520 [id number] Cari Davies MD /nt
--- NOTE | ~2017-09-07 | EKG ---
[place] [address] [employer] [place] [address] ELECTROCARDIOGRAM REPORT Name: ALFA BLEDSOE [id number] Admission: 09/07/17 Attend Phys: Discharge: Date of : 29 Report #: [id number] THIS REPORT FOR: //name// [facility] ED Test Date: 2017-09-07 Test Time: 15:46:20 Pat Name: ALFA BLEDSOE Department: Room: Gender: M Manager Of Recruiting: KAITLYNN : 1930 Requested By: Titi Campa Order Number: [id number] MD: Damon Higuera Measurements Intervals [place] Rate: 86 P: -56 AR: 222 QRS: -55 QRSD: 130 T: 57 QT: 444 QTc: 531 Interpretive Statements Sinus or ectopic atrial rhythm LAFB Compared to ECG 02/25/2017 11:47:47 Ectopic atrial rhythm now present Electronically Signed On 09-07-2017 15:52:52 THERAPEUTIC MASSAGE TECHNICIAN by Damon Higuera [email or web address] <ELECTRONICALLY SIGNED> By: Damon Higuera MD 09/07/17 1552 1546 1546 Damon Higuera MD /ABBI
--- NOTE | ~2017-09-07 | HC ---
[facility] [place] [address] CONSULTATION Name: ALFA BLEDSOE Room #: 432-P [facility] IN M.R.#: [id number] Admission: 09/07/17 Attend Phys: Oscar Gupta MD Discharge: 09/18/17 Date of : 29 Report #: [id number] THIS REPORT FOR: //name// CC: Oscar Mendoza DATE OF SERVICE: 09/15/2017 HISTORY OF PRESENT ILLNESS: The patient is an 87-year-old white male, who was originally admitted with cough, shortness of breath, and fever. He was noted to have increasing weakness and shortness of breath with exertion. He has a prior history of CLL and gets IVIG. He has been diagnosed with pneumonia with bilateral pulmonary infiltrates and positive influenza A. Infectious Diseases is involved as well as Pulmonary and Hematology. He was seen by Urology with plan to maintain Moody with okay to remove closer to discharge. He is continuing on Flomax. Cardiology has been involved as well. He was noted to have acute hypoxic respiratory failure and is being weaned off oxygen. He has CHF, systolic, which is compensated. He has medical complexity with generalized debilitation. We are seeing him in rehabilitation medicine consultation. PAST MEDICAL HISTORY: Includes CLL, pneumonia, hypogammaglobulinemia, arthritis, and bradycardia. HABITS: No history of tobacco or alcohol abuse. ALLERGIES: No known drug allergies. SOCIAL HISTORY: Lives at [place] in an independent living apartment with his , no steps. He indicated that he did not use a cane and was able to get around without gait aids. His apparently uses a walker and he would supervise her. Case Management indicates that there is a caregiver that assists the and that there are private duty caregivers in the apartment, although when I talked to the patient about that he seemed to deny that there was anyone there and that he could care for himself and he would just supervise his . The patient's son is noted to be involved. REVIEW OF SYSTEMS: Complains of being overall weak. No focal extremity pain complaints. He has the cough, which is bothersome. No current complaints of shortness of breath, chest pain, or abdominal discomfort. PHYSICAL EXAMINATION: GENERAL: An 87-year-old white male, no obvious distress. VITAL SIGNS: Last recorded temperature is 97.6, pulse 60, respirations 16, and blood pressure 155/74. NEUROLOGIC: The patient is alert and follows basic 1-step commands. Facies are symmetric. He has functional range of motion of both upper extremities with [address] [address] CONSULTATION Name: ALFA BLEDSOE Room #: 432-P [facility] IN M.R.#: [id number] Admission: 09/07/17 Attend Phys: Oscar Gupta MD Discharge: 09/18/17 Date of : 29 Report #: [id number] strength grade 4-/5. DTRs are trace to 1. Lower extremities, no focal calf swelling. Functional range of motion with strength grade 3+ to 4-/5. DTRs are trace to 1. He has been mod assist sit to stand and last ambulated 10 feet min assist with a front-wheeled walker. Occupational Therapy noted that he was total assist debate below his knees. ASSESSMENT: An 87-year-old white male with the following problem list: 1. Medical complexity with generalized debilitation. 2. Pulmonary rehabilitation. 3. Pneumonia with pulmonary hypertension. 4. Acute hypoxic respiratory failure, tapering off oxygen. 5. Chronic lymphocytic leukemia, in remission. 6. Hypogammaglobulinemia. 7. Apparent urinary retention, on Flomax with current catheter usage. 8. Congestive heart failure, systolic, compensated. PLAN: Therapies are continuing to work with him on improving strength, functional mobility, and ADLs. Insurance will need to be checked regarding rehab therapy needs. We will be glad to follow along with you. <ELECTRONICALLY SIGNED> By: David Yadav MD 09/18/17 1408 0916 1902 David Yadav MD /nt
--- NOTE | ~2017-09-07 | HC ---
[facility] [place] [address] CONSULTATION Name: ALFA BLEDSOE Room #: 432-P [facility] IN M.R.#: [id number] Admission: 09/07/17 Attend Phys: Oscar Gupta MD Discharge: Date of : 29 Report #: [id number] THIS REPORT FOR: //name// CC: Oscar Mendoza TYPE OF REPORT: Infectious diseases consultation. REASON FOR CONSULTATION: I was asked to evaluate concerning pneumonia. HISTORY OF PRESENT ILLNESS: The patient is an 87-year-old with history of non-Hodgkin's lymphoma and CLL, now on Imbruvica. Family states the patient has been in remission. Also, has hypogammaglobulinemia. He received immunoglobulin injections. He was seen last week by Dr. Davies in the Oncology Clinic. He received a good report. Immunoglobulin infusion was completed. Three days ago, developed acute onset of fever, chills, cough. Presented to the Emergency Room on 09/07/2017 with temperature up to 104 degrees leading up to this. He was given IV fluids for dehydration and hypotension. His worsened. He was then diuresed yesterday, but continues to have need for oxygen supplementation. He had low grade fever today up to 38 degrees. He continues to cough with minimal sputum production. He has malaise, myalgias, arthralgias. No hemoptysis. He has had 2 previous pneumonias. Immunizations are up-to-date for pneumonia vaccine and influenza vaccination. His has had no respiratory issues. He has had no travel. No tuberculosis exposure. No HIV risk factors. PAST MEDICAL HISTORY: CLL, pneumonia, hypogammaglobulinemia, two skin cancers, BPH, degenerative arthritis, cataract surgery, nonischemic cardiomyopathy. ALLERGIES: None. MEDICATIONS: As noted on his MAR, having been given vancomycin, Levaquin and Tamiflu. FAMILY HISTORY: Noncontributory. SOCIAL HISTORY: Nonsmoker, no significant alcohol intake. REVIEW OF SYSTEMS: No headache, nausea, vomiting, diarrhea, dysuria or frequency. Has had lower extremity swelling since hospitalization. PHYSICAL EXAMINATION: VITAL SIGNS: Afebrile. Maximum temperature is 100.5 degrees, he is on 2 liters of oxygen per nasal cannula, he had frequent coughing with no sputum production. GENERAL: He was alert, cooperative, generalized weakness. SKIN: Several areas of ecchymosis. LYMPHATICS: Unremarkable. [facility] [address] [place] [address] CONSULTATION Name: ALFA BLEDSOE Room #: 432-P [facility] IN M.R.#: [id number] Admission: 09/07/17 Attend Phys: Oscar Gupta MD Discharge: Date of : 29 Report #: [id number] EYES: Unremarkable. MOUTH: Unremarkable. NECK: Supple. JV pulsation was normal in the neck. LUNGS: Coarse breath sounds bilaterally with no consolidation. He had loose minimally productive cough. HEART: Regular, without appreciable murmur. ABDOMEN: Soft, nontender. No hepatosplenomegaly or mass. EXTREMITIES: Lower extremities 1+ edema. LABORATORY STUDIES: Sodium 138, potassium 3.3, bicarbonate 25, creatinine 1.6. BNP 6273. Hemoglobin 10, platelet count 190,000, white count 11.4 with 63% segs and 29% lymphs. Echocardiogram: EF 30-40%. Blood cultures negative thus far. Influenza antigen negative. Procalcitonin 3.9. MRSA screen pending. Video swallow, no aspiration. Chest x-ray, increased bilateral infiltrates, right middle and lower lobe as well as left lower lobe. IMPRESSION: An 87-year-old immunosuppressed on treatment for chronic lymphocytic leukemia. Associated hypogammaglobulinemia having been replaced. Now with community-acquired pneumonia, no improvement since admission. Would be concerned about community-acquired as well as opportunistic organisms. Does not have the typical look of pneumocystis. I am still suspecting it is most likely viral etiology at the onset. Bacterial etiology still need to be evaluated and treated for. Recommend obtaining sputum cultures for culture. Viral respiratory panel. Check urine antigens. We will broaden his antibiotics with the addition of Zosyn. Considering his immunosuppression, would favor bronchoscopy with bronchoalveolar lavage if unable to obtain expectorated samples. <ELECTRONICALLY SIGNED> By: Eduardo Babin MD 09/10/17 1253 1156 1907 Eduardo Babin MD /nt
--- NOTE | ~2017-09-07 | EKG ---
[address] [place] [address] ELECTROCARDIOGRAM REPORT Name: ALFA BLEDSOE Room #: 432-P ADM IN M.R.#: [id number] Admission: 09/07/17 Attend Phys: Oscar Gupta MD Discharge: Date of : 29 Report #: [id number] THIS REPORT FOR: //name// [facility] Test Date: 2017-09-08 Test Time: 14:11:16 Pat Name: ALFA BLEDSOE Department: Room: 432 P Gender: M [employer] Architect: Javier PERDUE : 1930 Requested By: Luli Bunch Order Number: [id number] MD: Measurements Intervals [place] Rate: 91 P: [place]: QRS: -50 QRSD: 132 T: 61 QT: 424 QTc: 522 Interpretive Statements Accelerated junctional rhythm Nonspecific IVCD with LAD Left ventricular hypertrophy ST elevation, consider inferior injury Compared to ECG 09/07/2017 15:46:20 Accelerated junctional rhythm now present Intraventricular conduction delay now present Left ventricular hypertrophy now present ST (T wave) deviation now present Myocardial infarct finding now present Ectopic atrial rhythm no longer present Left anterior fascicular block no longer present [email or web address] By: [id number] Epiphany EpiphanyMD /ABBI
[~2017-09-07 15:06] MED LIST changes: -CARVEDILOL3.125 MG PO; -CEFDINIR300 MG PO; -HYDROCODON-ACE1 EAC7 PO; -IMBRUVICA140 MG PO; -LEVALBUTER0.63 MG/3 INH; -SYNTHROID175 MCG PO
[2017-09-07 15:10] VITALS: BP 199/94
[2017-09-07 16:55] LABS: ABSOLUTE NEUTROPHILS 7.9 thou/uL (1.4-8.2); BASOPHILS 0.7 % (0.0-2.0); HEMATOCRIT 30.3 % (42.0-52.0); HEMOGLOBIN 9.6 gm/dL (14.0-18.0); LYMPHOCYTES 34.1 % (24.0-44.0); MCH 22.3 pg (26.0-34.0); MCHC 31.8 g/dL (28.0-37.0); MONOCYTES 6.9 % (1.0-8.0); PLATELET COUNT 183 thou/uL (150-400); POLYS 58.3 % (36.0-66.0); RBC 4.33 mil/uL (4.50-6.00); RDW 18.2 % (10.5-14.5); WBC 13.6 thou/uL (4.0-11.0)
[2017-09-07 17:08] LABS: CALCIUM 8.3 mg/dL (8.5-10.1); CREATININE 1.3 mg/dL (0.7-1.3); POTASSIUM 3.7 mmol/L (3.5-5.1)
[2017-09-07 17:16] LABS: TROPONIN-I 0.04 ng/mL (<0.06)
[2017-09-07 18:06] LABS: ANISOCYTOSIS 1+; HYPOCHROMASIA 1+; MICROCYTES 1+
[2017-09-07 18:31] VITALS: BP 176/64
[2017-09-07 18:48] VITALS: BP 108/52
[2017-09-07 19:32] VITALS: BP 110/47
[2017-09-07] MEDS ORDERED: IMBRUVICA140 MG PO ×2 (20:22→20:27)
[2017-09-08 01:48] VITALS: BP 163/69
[2017-09-08 04:59] VITALS: BP 133/58
[2017-09-08 06:32] LABS: HEMATOCRIT 29.3 % (42.0-52.0); HEMOGLOBIN 9.2 gm/dL (14.0-18.0); MCH 22.1 pg (26.0-34.0); MCHC 31.4 g/dL (28.0-37.0); MCV 70.3 fL (80.0-100.0); RBC 4.17 mil/uL (4.50-6.00); RDW 18.9 % (10.5-14.5); WBC 13.4 thou/uL (4.0-11.0)
[2017-09-08 07:17] LABS: CALCIUM 8.2 mg/dL (8.5-10.1); CREATININE 1.5 mg/dL (0.7-1.3); POTASSIUM 3.4 mmol/L (3.5-5.1)
[2017-09-08] MEDS ORDERED: SYNTHROID175 MCG PO (07:28)
[2017-09-08 08:36] VITALS: BP 159/76
[2017-09-08 13:56] LABS: TSH 3.535 uIU/mL (0.358-3.740)
[2017-09-08 15:48] VITALS: BP 119/48
[2017-09-09 05:05] VITALS: BP 144/72
[2017-09-09 05:17] LABS: ABSOLUTE NEUTROPHILS 7.2 thou/uL (1.4-8.2); BASOPHILS 0.2 % (0.0-2.0); HEMATOCRIT 31.9 % (42.0-52.0); LYMPHOCYTES 29.6 % (24.0-44.0); MCH 22.2 pg (26.0-34.0); MCHC 31.3 g/dL (28.0-37.0); MONOCYTES 6.8 % (1.0-8.0); POLYS 63.4 % (36.0-66.0); RDW 19.1 % (10.5-14.5); WBC 11.4 thou/uL (4.0-11.0)
[2017-09-09 05:35] LABS: CALCIUM 8.4 mg/dL (8.5-10.1); CREATININE 1.6 mg/dL (0.7-1.3); POTASSIUM 3.3 mmol/L (3.5-5.1)
[2017-09-09 05:54] LABS: ANISOCYTOSIS 2+; HYPOCHROMASIA SLIGHT; MICROCYTES 1+; PLATELET COUNT 190 thou/uL (150-400)
[2017-09-09 05:55] LABS: LARGE PLATELETS OCCASIONAL
[2017-09-09 08:09] VITALS: BP 148/64
[2017-09-09 11:31] LABS: APTT 50.6 Seconds (24.5-32.8); INR 1.2
[2017-09-09 12:16] LABS: HCO3 21.9 mmol/L (22.0-26.0); PCO2 29.8 mmHg (35.0-45.0); PO2 55.9 mmHg (80.0-100.0); pH 7.484 (7.360-7.450); sO2 91.6 % (92.0-98.0)
[2017-09-09 15:46] VITALS: BP 104/46
[2017-09-09 20:52] VITALS: BP 115/51
[2017-09-10 06:00] VITALS: BP 135/61
[2017-09-10 10:34] LABS: ABSOLUTE NEUTROPHILS 4.5 thou/uL (1.4-8.2); BASOPHILS 0.2 % (0.0-2.0); HEMATOCRIT 28.5 % (42.0-52.0); HEMOGLOBIN 9.1 gm/dL (14.0-18.0); LYMPHOCYTES 23.3 % (24.0-44.0); MCH 22.8 pg (26.0-34.0); MCHC 32.1 g/dL (28.0-37.0); MCV 71.1 fL (80.0-100.0); MONOCYTES 7.8 % (1.0-8.0); PLATELET COUNT 174 thou/uL (150-400); POLYS 68.7 % (36.0-66.0); RDW 19.5 % (10.5-14.5); WBC 6.6 thou/uL (4.0-11.0)
[2017-09-10 10:40] VITALS: BP 106/45
[2017-09-10 10:40] LABS: CALCIUM 8.4 mg/dL (8.5-10.1); CREATININE 1.6 mg/dL (0.7-1.3); POTASSIUM 3.2 mmol/L (3.5-5.1)
[2017-09-10 11:09] LABS: PLATELET ESTIMATE NORMAL
[2017-09-10 11:10] LABS: ANISOCYTOSIS 1+; HYPOCHROMASIA 1+; MICROCYTES 2+; POLYCHROMASIA 1+
[2017-09-10 14:03] LABS: MAGNESIUM 2.2 mg/dL (1.8-2.4)
[2017-09-10 16:52] VITALS: BP 119/39
[2017-09-10 20:00] VITALS: BP 119/54
[2017-09-11 07:34] VITALS: BP 139/68
[2017-09-11 11:27] LABS: ABSOLUTE NEUTROPHILS 3.8 thou/uL (1.4-8.2); BASOPHILS 0.3 % (0.0-2.0); EOSINOPHILS 0.2 % (0.0-3.0); HEMATOCRIT 27.7 % (42.0-52.0); HEMOGLOBIN 8.8 gm/dL (14.0-18.0); LYMPHOCYTES 31.5 % (24.0-44.0); MCH 22.5 pg (26.0-34.0); MCHC 31.7 g/dL (28.0-37.0); MONOCYTES 8.5 % (1.0-8.0); PLATELET COUNT 164 thou/uL (150-400); POLYS 59.5 % (36.0-66.0); RDW 19.3 % (10.5-14.5); WBC 6.4 thou/uL (4.0-11.0)
[2017-09-11 11:41] LABS: ALBUMIN 2.7 g/dL (3.4-5.0); CALCIUM 8.4 mg/dL (8.5-10.1); CREATININE 1.2 mg/dL (0.7-1.3); MAGNESIUM 2.4 mg/dL (1.8-2.4); POTASSIUM 3.1 mmol/L (3.5-5.1); TOTAL BILIRUBIN 0.6 mg/dL (<0.1-1.0)
[2017-09-11 12:18] LABS: ANISOCYTOSIS 2+; HYPOCHROMASIA 2+; POLYCHROMASIA 1+; SCHISTOCYTES FEW; TARGET CELLS FEW
[2017-09-11 12:26] LABS: T-SPOT.TB Negative
[2017-09-11 16:15] VITALS: BP 117/70
[2017-09-11 17:28] LABS: CALCIUM 8.4 mg/dL (8.5-10.1); CREATININE 1.2 mg/dL (0.7-1.3); MAGNESIUM 2.4 mg/dL (1.8-2.4); POTASSIUM 3.3 mmol/L (3.5-5.1)
[2017-09-11 19:28] VITALS: BP 144/73
[2017-09-12 00:08] LABS: ADENOVIRUS Negative (Negative); INFLUENZA A Positive (Negative); INFLUENZA B Negative (Negative); METAPNEUMOVIRUS Negative (Negative); PARAINFLUENZA 1 Negative (Negative); PARAINFLUENZA 2 Negative (Negative); PARAINFLUENZA 3 Negative (Negative); RHINOVIRUS Negative (Negative); RSV A Negative (Negative); RSV B Negative (Negative)
[2017-09-12 04:00] VITALS: BP 132/68
[2017-09-12 06:28] LABS: ABSOLUTE NEUTROPHILS 4.8 thou/uL (1.4-8.2); BASOPHILS 0.2 % (0.0-2.0); EOSINOPHILS 0.2 % (0.0-3.0); HEMATOCRIT 26.5 % (42.0-52.0); HEMOGLOBIN 8.5 gm/dL (14.0-18.0); LYMPHOCYTES 26.1 % (24.0-44.0); MCH 22.7 pg (26.0-34.0); MCHC 32.1 g/dL (28.0-37.0); MCV 70.7 fL (80.0-100.0); MONOCYTES 8.8 % (1.0-8.0); PLATELET COUNT 161 thou/uL (150-400); POLYS 64.7 % (36.0-66.0); RBC 3.75 mil/uL (4.50-6.00); RDW 19.6 % (10.5-14.5); WBC 7.4 thou/uL (4.0-11.0)
[2017-09-12 06:37] LABS: CALCIUM 8.2 mg/dL (8.5-10.1); CREATININE 1.1 mg/dL (0.7-1.3); POTASSIUM 3.3 mmol/L (3.5-5.1)
[2017-09-12 08:13] VITALS: BP 142/71
[2017-09-12 08:31] LABS: ANISOCYTOSIS 2+; HYPOCHROMASIA 2+; MICROCYTES 1+
[2017-09-12 17:00] VITALS: BP 137/73
[2017-09-12 20:40] VITALS: BP 138/54
[2017-09-13 04:58] VITALS: BP 144/59
[2017-09-13 05:33] LABS: HEMATOCRIT 26.7 % (42.0-52.0); HEMOGLOBIN 8.5 gm/dL (14.0-18.0); MCH 22.7 pg (26.0-34.0); RBC 3.77 mil/uL (4.50-6.00); RDW 19.4 % (10.5-14.5); WBC 6.3 thou/uL (4.0-11.0)
[2017-09-13 05:40] LABS: ALBUMIN 2.5 g/dL (3.4-5.0); CALCIUM 8.2 mg/dL (8.5-10.1); CREATININE 1.1 mg/dL (0.7-1.3); PHOSPHORUS 2.7 mg/dL (2.5-4.9); POTASSIUM 3.4 mmol/L (3.5-5.1)
[2017-09-13 08:25] VITALS: BP 143/73
[2017-09-13 16:46] VITALS: BP 135/67
[2017-09-13 20:00] VITALS: BP 127/60
[2017-09-14 04:36] VITALS: BP 151/70
[2017-09-14 05:35] LABS: HEMATOCRIT 27.3 % (42.0-52.0); HEMOGLOBIN 8.8 gm/dL (14.0-18.0); MCH 22.6 pg (26.0-34.0); MCHC 32.1 g/dL (28.0-37.0); MCV 70.4 fL (80.0-100.0); RBC 3.88 mil/uL (4.50-6.00); RDW 18.3 % (10.5-14.5); WBC 6.7 thou/uL (4.0-11.0)
[2017-09-14 05:51] LABS: ALBUMIN 2.5 g/dL (3.4-5.0); POTASSIUM 3.5 mmol/L (3.5-5.1); TOTAL BILIRUBIN 0.5 mg/dL (<0.1-1.0); TOTAL PROTEIN 5.5 g/dL (6.4-8.2)
[2017-09-14 09:50] VITALS: BP 149/67
[2017-09-14 14:44] VITALS: BP 143/78
[2017-09-14 19:51] VITALS: BP 128/59
[2017-09-14 20:45] VITALS: BP 144/55
[2017-09-15 04:02] VITALS: BP 155/86
[2017-09-15 04:48] LABS: ABSOLUTE NEUTROPHILS 3.7 thou/uL (1.4-8.2); BASOPHILS 1.1 % (0.0-2.0); EOSINOPHILS 0.7 % (0.0-3.0); HEMATOCRIT 28.4 % (42.0-52.0); HEMOGLOBIN 9.2 gm/dL (14.0-18.0); LYMPHOCYTES 30.5 % (24.0-44.0); MCH 22.8 pg (26.0-34.0); MCHC 32.3 g/dL (28.0-37.0); MCV 70.5 fL (80.0-100.0); MONOCYTES 10.7 % (1.0-8.0); PLATELET COUNT 252 thou/uL (150-400); RBC 4.02 mil/uL (4.50-6.00); RDW 19.8 % (10.5-14.5); WBC 6.5 thou/uL (4.0-11.0)
[2017-09-15 05:03] LABS: POTASSIUM 3.5 mmol/L (3.5-5.1)
[2017-09-15 06:40] LABS: ANISOCYTOSIS 2+; MICROCYTES 1+; POLYCHROMASIA OCCASIONAL
[2017-09-15 06:41] LABS: HYPOCHROMASIA SLIGHT
[2017-09-15 08:12] VITALS: BP 155/74
[2017-09-15 08:44] VITALS: BP 155/74
[2017-09-15 17:07] VITALS: BP 148/70
[2017-09-15 22:56] VITALS: BP 142/56
[2017-09-16 00:08] LABS: ADENOVIRUS Negative (Negative); INFLUENZA A Positive (Negative); INFLUENZA B Negative (Negative); METAPNEUMOVIRUS Negative (Negative); PARAINFLUENZA 1 Negative (Negative); PARAINFLUENZA 2 Negative (Negative); PARAINFLUENZA 3 Negative (Negative); RHINOVIRUS Negative (Negative); RSV A Negative (Negative); RSV B Negative (Negative)
[2017-09-16 04:00] VITALS: BP 149/87
[2017-09-16 08:00] VITALS: BP 170/75
[2017-09-16 16:20] VITALS: BP 155/67
[2017-09-16 20:00] VITALS: BP 139/70
[2017-09-17 04:04] LABS: HEMATOCRIT 29.5 % (42.0-52.0); HEMOGLOBIN 9.5 gm/dL (14.0-18.0); MCH 22.8 pg (26.0-34.0); MCHC 32.1 g/dL (28.0-37.0); RBC 4.16 mil/uL (4.50-6.00); WBC 8.5 thou/uL (4.0-11.0)
[2017-09-17 04:23] LABS: CALCIUM 8.1 mg/dL (8.5-10.1); POTASSIUM 3.2 mmol/L (3.5-5.1)
[2017-09-17 04:26] LABS: PLATELET COUNT 382 thou/uL (150-400)
[2017-09-17 04:30] VITALS: BP 162/74
[2017-09-17 06:21] LABS: ANISOCYTOSIS 2+; ATYPICAL LYMPHS 2 %; BLASTS 1 %; POLYCHROMASIA 1+
[2017-09-17 06:25] LABS: LARGE PLATELETS FEW
[2017-09-17 08:00] VITALS: BP 171/80
[2017-09-17 16:16] VITALS: BP 148/68
[2017-09-17 20:49] VITALS: BP 115/50
[2017-09-18 03:00] VITALS: BP 147/76
[2017-09-18 06:16] LABS: HEMATOCRIT 29.8 % (42.0-52.0); HEMOGLOBIN 9.5 gm/dL (14.0-18.0); MCH 22.7 pg (26.0-34.0); MCV 70.9 fL (80.0-100.0); PLATELET COUNT 434 thou/uL (150-400); RBC 4.21 mil/uL (4.50-6.00); RDW 20.6 % (10.5-14.5); WBC 9.9 thou/uL (4.0-11.0)
[2017-09-18 06:30] LABS: CALCIUM 8.4 mg/dL (8.5-10.1); POTASSIUM 3.2 mmol/L (3.5-5.1)
[2017-09-18 07:30] VITALS: BP 153/72
[2017-09-18 07:35] LABS: ABSOLUTE NEUTROPHILS 6.8 thou/uL (1.4-8.2); ANISOCYTOSIS 2+; ATYPICAL LYMPHS 6 %; HYPOCHROMASIA 2+; MICROCYTES 1+; POLYCHROMASIA SLIGHT
[2017-09-18 08:53] VITALS: BP 153/72
[2017-09-18] MEDS ORDERED: LEVALBUTER0.63 MG/3 INH (11:02)
[2017-09-18] MEDS ORDERED: CARVEDILOL3.125 MG PO (11:02)
[2017-09-18] MEDS ORDERED: HYDROCODON-ACE1 EAC7 PO (11:02)
[2017-09-18] MEDS ORDERED: CEFDINIR300 MG PO (11:02)
== END 2017-09-18 13:09 | DRG 853 ==
LOC: ER 15:06 → 4E 17:48 → EROBS 17:48 → 4E 18:27
PROVIDERS: Hospitalist; Internal Medicine Endocrinology, Diabetes & Metabolism; Internal Medicine Pulmonary Disease; Physician Assistant; Registered Nurse; Specialist
PROC: 0BBD8ZX Excision of Right Middle Lung Lobe, Via Natural or Artificial Opening Endoscopic, Diagnostic (ICD-10-PCS; principal; 2017-09-11)
DX: A41.9 Sepsis, unspecified organism (principal); J96.01 Acute respiratory failure with hypoxia; J10.00 Influenza due to other identified influenza virus with unspecified type of pneumonia; D80.1 Nonfamilial hypogammaglobulinemia; C91.10 Chronic lymphocytic leukemia of B-cell type not having achieved remission; I42.9 Cardiomyopathy, unspecified; I50.20 Unspecified systolic (congestive) heart failure; N40.0 Benign prostatic hyperplasia without lower urinary tract symptoms; M19.90 Unspecified osteoarthritis, unspecified site; I27.20 Pulmonary hypertension, unspecified; E03.9 Hypothyroidism, unspecified; E78.5 Hyperlipidemia, unspecified; I95.1 Orthostatic hypotension; Z23 Encounter for immunization; D50.0 Iron deficiency anemia secondary to blood loss (chronic); Z98.42 Cataract extraction status, left eye; Z98.41 Cataract extraction status, right eye; Z85.828 Personal history of other malignant neoplasm of skin; Z90.49 Acquired absence of other specified parts of digestive tract; Z87.891 Personal history of nicotine dependence; Z80.3 Family history of malignant neoplasm of breast; Z83.3 Family history of diabetes mellitus
CPT/HCPCS: 10183